=== PATIENT | female | born 2000 | race Caucasian/White ===

== ENCOUNTER 2023-06-07 20:22 | Inpatient (IN) ==
[2023-06-07 21:24] LABS: ABS Eosinophils 0.1 10^3/uL (0.0-0.5); ABS Lymphocytes 2.9 10^3/uL (1.0-4.8); ABS Monocytes 0.8 10^3/uL (0.0-0.9); ABS Neutrophils 4.9 10^3/uL (1.5-7.6); ABS Nucleated RBC 0.01 10^3/ul; Eosinophil % 1.2 %; Hematocrit 39.5 % (35-45); Hemoglobin 13.7 g/dL (11.5-14.3); Lymphocyte % 33.3 %; Mean Corpuscular Hemoglobin 30.1 pg (27-33); Mean Corpuscular Hgb Conc 34.8 g/dL (31-36); Mean Corpuscular Volume 86.5 fL (80-97); Mean Platelet Volume 7.5 fL (7.5-11.2); Nucleated Red Blood Cells % 0.1 %/100WBC (0.0-0.8); Platelet Count 279 10^3/uL (150-450); Red Blood Count 4.56 10^6/uL (3.63-4.92); Red Cell Distribution Width 12.3 % (12-17); White Blood Count 8.7 10^3/uL (3.8-11.8)
[2023-06-07 21:40] LABS: Urine Appearance Clear; Urine Bilirubin Negative (Negative); Urine Blood Negative (Negative); Urine Color Colorless; Urine Glucose Negative (Negative); Urine Ketones Negative (Negative); Urine Nitrite Negative (Negative); Urine Protein Negative (Negative); Urine Specific Gravity 1.002 (1.002-1.030); Urine Urobilinogen Negative (Negative)
[2023-06-07 21:49] LABS: Urine Benzodiazepine Screen Presumptive Positive (None Detect); Urine Cannabinoids Screen Presumptive Positive (None Detect); Urine Opiates Screen None Detected (None Detect)
[2023-06-07 21:50] LABS: ALT 9 U/L (7-52); AST 17 U/L (13-39); Albumin 4.8 g/dL (3.2-5.2); Albumin/Globulin Ratio 1.8 (1-3); Alkaline Phosphatase 59 U/L (35-149); Anion Gap 7 mmol/L (2-16); Blood Urea Nitrogen 11 mg/dL (6-24); CO2 Carbon Dioxide 29 mmol/L (22-32); Calcium 10.3 mg/dL (8.6-10.3); Chloride 104 mmol/L (101-111); Creatinine, Serum 0.77 mg/dL (0.51-0.95); Globulin 2.6 g/dL (2-4); Glucose 85 mg/dL (70-100); HCG Pregnancy < 0.60 mIU/mL; Sodium 140 mmol/L (135-145); Total Bilirubin 0.4 mg/dL (0.2-1.0); Total Protein 7.4 g/dL (6.4-8.9); eGFR CKD-EPI 112.5 (>60)
[2023-06-07 21:56] LABS: Acetaminophen < 15 mcg/mL; Alcohol, S < 13 mg/dL (<13); Salicylate < 2.50 mg/dL (<30)
[2023-06-07 22:09] LABS: TSH Ultra Thyroid Stim Horm 2.81 mcIU/mL (0.34-5.60)
[2023-06-07] MEDS ORDERED: Al Hydrox/Mg Hydrox/Simet LIQ 30 ML UDC PO PRN (22:47)
[2023-06-07] MEDS: Nicotine GUM 2MG FRUIT FLAVOR PO PRN (23:31)
[2023-06-08] MEDS: Nicotine GUM 2MG FRUIT FLAVOR PO PRN ×2 (08:27→20:47)
[2023-06-08] MEDS: Vitamin THERAPEUTIC TAB PO SCH (08:27)
[2023-06-08] MEDS ORDERED: Venlafaxine XR 75 mg PO SCH (09:00)
[2023-06-08 10:15] LABS: HDL Cholesterol 52.5 mg/dL
[2023-06-08] MEDS: Nicotine PATCH 21 MG/24 HR PATCH TRANSDERM SCH (11:56)
[2023-06-08] MEDS: CMCS: LoraTADine 10 mg TAB (NF) PO SCH (11:57)
[2023-06-09] MEDS: Nicotine PATCH 21 MG/24 HR PATCH TRANSDERM SCH (07:57)
[2023-06-09] MEDS: Vitamin THERAPEUTIC TAB PO SCH (07:58)
[2023-06-09] MEDS: CMCS: LoraTADine 10 mg TAB (NF) PO SCH (07:58)
[2023-06-09 11:25] VITALS: BP 130/92
== END 2023-06-09 12:40 | disposition home or self-care (01) | DRG 753 ==
LOC: ED 20:22 → EDHOLD 22:45 → BSU 23:00
PROVIDERS: ADMIT Psychiatry & Neurology Psychiatry; ATTEND Psychiatry & Neurology Psychiatry